=== PATIENT | male | born 2005 | race Caucasian/White ===

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

== ENCOUNTER 2025-01-22 07:33 | Emergency (ER) | payer SELFPAY ==
[2025-01-22 07:33] VITALS: BP 129/85; PULSE 104; RESP 24; TEMP 36.5; O2SAT 100; BMI 23.0
--- NOTE | 2025-01-22 07:37 | ECG_ITS ---
APPROVED REPORT Exam: Resting ECG HR:82 bpm ECG Measurements Heart Rate 82 AXES OH 136 P 67 QRSd 105 QRS 80 QT 345 T 74 QTc 383 Conclusion SINUS RHYTHM WITH OCCASIONAL SUPRAVENTRICULAR PREMATURE COMPLEXES INCOMPLETE RIGHT BUNDLE BRANCH BLOCK [90+ ms QRS DURATION, TERMINAL R IN V1/V2, 40+ ms S IN I/aVL/V4/V5/V6] BORDERLINE ECG UNCONFIRMED REPORT Electronically signed by : LORIE RENEE, 01/24/2025 02:53:10
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
--- OUTSIDE RECORDS SUMMARY | 2025-01-22 07:40 | XMS_ITS | Clinical Summary ---
Author Organization [facility] Address [address] [place] [address] Care Team Providers Care Optician Apprentice Dispensing Name Role Phone Provider, No Known Primary Care Provider [phone] Allergies Active Allergy Reactions Criticality Noted Date [...] 04/21/2022, 017 Insurance [employer] MEDICAID [place] Care Teams Optician Apprentice Dispensing Relationship Specialty Start Date End Date Provider, No Known [facility] [place] [address] PCP - General 02/03/24
--- OUTSIDE RECORDS SUMMARY | 2025-01-22 07:40 | XMS_ITS | Clinical Summary ---
Author Organization [facility] Address [address], [address] [place] [address] Care Team Providers Care Negative Turner Name Role Phone Unavailable Primary Care Provider [...]
--- OUTSIDE RECORDS SUMMARY | 2025-01-22 07:40 | XMS_ITS | Clinical Summary ---
Author Organization [facility] Address [address] [place] [address] Care Team Providers Care Certified Ophthalmic Medical Technician Name Role Phone Eduar Prasad MD Primary Care Provider [phone] Allergies Active Allergy Reactions Criticality Noted Date [...] 5 Active cholecalciferol (VITAMIN D3) 1.25 MG (20702 UT) capsule TAKE 1 CAPSULE BY MOUTH [...] [employer] Care Teams Certified Ophthalmic Medical Technician Relationship Specialty Start Date End Date Eduar Prasad MD [address] [facility] [address] [place] [address] PCP - General Internal Medicine 02/24/22
--- OUTSIDE RECORDS SUMMARY | 2025-01-22 07:40 | XMS_ITS | Clinical Summary ---
Author Organization [facility] Address [address] [place] [address] Care Team Providers Care Clamper Name Role Phone Pcp, No Primary Care [...] 2024 12/07/2009, 11/17/2006, 06/09/2006, Additional history exists [id number] Vaccine (1 - season) 2024 UKY-Influenza Vaccine [...] this topic Insurance MEDICAID [place] [facility]ID [facility] Advance Directives * Full Code (Latest Code [...] Surrogate: Parent(s) of the patient Care Teams Clamper Relationship Specialty Start Date End Date Mayte Swift [address] [place] [address] PCP - General Family Medicine 05/13/21
--- NOTE | 2025-01-22 07:44 | ED_ITS ---
Discharge Plan Disposition Patient Disposition: Home, Self-Care Condition: Good Prescriptions Prescriptions: No Action triamcinolone acetonide 0.025 % ointment 1 applic topical BID PRN (Reason: rash) Qty: 30 0RF Rx Instructions: apply to rash as directed, do not use on your face prednisone 5 mg tablets,dose pack See Rx Instructions PO PER PKG DIR Qty: 21 0RF Rx Instructions: PO PER PKG DIR famotidine [Pepcid] 20 mg tablet 20 mg PO DAILY Qty: 30 0RF Referrals Follow up/Referrals: Lonnie Prasad MD [Primary Care Provider, Internal Medicine] - See instructions Activity Restrictions/Add. Instructions Additional Instructions/Restrictions: There is no evidence of any emergent medical condition identified today. Your symptoms are all consistent with a methamphetamine overdose. As the drug continues to metabolize and your body your symptoms should continue to improve. Return to the emergency point with any other concerns. Clinical Impressions Clinical Impression: Methamphetamine abuse, Panic attack, Atypical chest pain, Hyperbilirubinemia Print Language Print Language: Tanzanian Discharge ED Provider: Trey Nicole General Adult HPI General Chief complaint: Chest Pain Stated complaint: CP Time Seen by Provider: 01/22/25 07:36 History of Present Illness HPI narrative: Patient is a 19-year-old male presenting today with a panic attack and chest discomfort after using meth all night long last night. First time that he had used meth. States that he thought he would be okay because he had been on Ritalin in the past. Typically uses downers and pain pills. He states he had been off of this for several months though. Related Data Previous Rx's ?Medication ?Instructions ?Recorded prednisone 5 mg tablets in a dose See Rx Instructions PO PER PKG DIR 10/13/24 pack #21 tabs triamcinolone acetonide 0.025 % 1 applic topical BID P RN rash #30 10/13/24 topical ointment grams famotidine 20 mg tablet (Pepcid) 20 mg PO DAILY #30 ta bs 12/30/24 Allergies Allergy/AdvReac Type Severity Reaction Status Date / Time haloperidol (From Haldol) Allergy Intermediate Palpitation Verified 10/13/24 12:23 [facility] Disclaimer: The information contained in this section may have been updated after the patient was seen, as this information can be updated by other users. Medical History Depression Anxiety Surgical History History of tympanostomy tube placement History of surgery on arm Family History Family/Other No significant family history Social History Smoking Status: Current every day smoker alcohol intake: never current occupational status: student Travel in the last 8 weeks?: None Have you lived/traveled outside US in past 30 days?: No Contact w/someone who lives/traveled outside US past 30 days?: No Exposure to someone with infectious disease in past 14 days?: No Do you have a fever (greater than 100.4 F or 38 C)?: No Have you tested positive for COVID-19?: No Exposed to someone with COVID-19 in past 14 days?: No Do you have a sore throat?: No Do you have a cough?: No Do you have any weakness?: No Do you have any diarrhea?: No Are you experiencing any unusual bleeding?: No Do you have any muscle aches/pain?: No Do you have any abdominal pain?: No Are you experiencing loss of taste or smell?: No Other Medical History Have you received the Pneumonia Vaccine: No ROS Obtained: Yes All systems reviewed & no additional complaints except as documented Physical Exam General General appearance: anxious (Hyperventilating) Respiratory Respiratory exam: Present normal lung sounds bilaterally; Absent respiratory distress Cardiovascular Cardiovascular exam: Present tachycardia Neurological Exam Neurological exam: Present alert, oriented X3 and other (Nonfocal) Medical Decision Making Medical Records Screening: Per USPSTF and CDC recommendations, given the prevalence of disease in our region, it is our hospital?s policy to screen for HIV and viral Hepatitis for all patients aged 18 and over and those with ongoing risk factors. Deshawn Inquiry Pt receiving controlled substance: No Vital Signs: 01/22/25 07:33 01/22/25 07:33 01/22/25 08:00 Temperature 97.7 F 97.7 F Temperature Source Oral Pulse Rate 104 H 116 H Pulse Rate [Right] 104 H Respiratory Rate 24 24 Blood Pressure 129/85 124/81 Blood Pressure [Right Arm] 129/85 Blood Pressure Mean [Right Arm] 99 02 Sat by Pulse Oximetry 100 100 99 Oxygen Delivery Method 01/22/25 08:00 01/22/25 08:01 01/22/25 08:31 Temperature Temperature Source Pulse Rate 110 H 116 H 97 H Pulse Rate [Right] Respiratory Rate 29 H 24 Blood Pressure 124/81 127/76 Blood Pressure [Right Arm] Blood Pressure Mean [Right Arm] 02 Sat by Pulse Oximetry 99 99 Oxygen Delivery Method Room Air Room Air 01/22/25 09:16 Temperature 97.7 F Temperature Source Pulse Rate 65 Pulse Rate [Right] Respiratory Rate 20 Blood Pressure 137/80 Blood Pressure [Right Arm] Blood Pressure Mean [Right Arm] 02 Sat by Pulse Oximetry Oxygen Delivery Method Lab Data Lab results reviewed: Yes I reviewed the patient's lab results. Lab Results 01/22/25 07:19: WBC 14.3 H, RBC 5.42, Hgb 17.2, Hct 47.5, MCV 87.6, MCH 31.7 H, MCHC 36.2 H, RDW 12.5, Plt Count 378, MPV 9.8, Neut % (Auto) 73.6, Lymph % (Auto) 18.0, [place] % (Auto) 7.3, Eos % (Auto) 0.6, Baso % (Auto) 0.3, Neut # (Auto) 10.6 H, Lymph # (Auto) 2.6, [place] # (Auto) 1.1 H, Eos # (Auto) 0.1, Baso # (Auto) 0.1, Sodium 140, Potassium 3.8, Chloride 105, Carbon Dioxide 17 L, Anion Gap 21.8 H, BUN 15, Creatinine 1.30 H, Estimated GFR 71, Est GFR ( Amer) 86, Glucose 99, Calcium 9.6, Total Bilirubin 3.7 H, AST 29, ALT 22, Alkaline Phosphatase 94, Total Creatine Kinase 127, Troponin I < 0.01, Total Protein 9.2 H, Albumin 5.2 H, Globulin 4.0 H, Albumin/Globulin Ratio 1.3 01/22/25 07:19 01/22/25 07:19 Orders (Tests/Meds): ED MEDICATIONS Discontinued Medications Generic Name Dose Route Start Last Admin Trade Name Freq PRN Reason Stop Dose Admin Diazepam 2 mg 01/22/25 07:41 01/22/25 08:08 Diazepam 10mg/2ml Syringe IV 01/22/25 07:42 2 mg ONCE ONE Administration Lactated Ringer's 1,000 mls @ 999 mls/hr 01/22/25 07:45 01/22/25 08:10 Lactated Ringer's 1000 Ml Bag IV 01/22/25 08:45 999 mls/hr .Q1H1M BOB Administration ORDERS Category Date Time Status CBC w/Auto Diff [Complete Blood Count Auto Diff] Stat Lab 01/22/25 07:19 Completed CK [Creatine Kinase] Stat Lab 01/22/25 07:19 Completed CMP [Comprehensive Metabolic Panel] Stat Lab 01/22/25 07:19 Completed Trop I [Troponin I] Stat Lab 01/22/25 07:19 Completed Troponin I Q3H Lab 01/22/25 10:45 Ordered Troponin I Q3H Lab 01/22/25 13:45 Ordered Medical Decision Narrative: 19-year-old with above history and physical. EKG was performed which I personally interpreted which shows a ventricular rate of 82 no acute ischemic changes noted poor baseline due to patient's tremor normal axis unremarkable EKG. Patient is having a panic attack and was very anxious and tachycardic and tremulous this is all consistent with a methamphetamine overdose. States that he was trying to keep up with the person that he was using with and this was the first time that he ingested. I had an extensive discussion with him that these medications/drugs are not FDA approved therefore he does not know exactly what he put into his body. He is awake alert oriented no medical reason for me to try to identify the exact metabolite that he ingested but this seems to be consistent with meth. Will get a CK and a single troponin EKG is nonischemic given IV fluids and IV Valium and keep him for observation. Reassessment 919 patient much improved heart rate down in the 60s and 70s he feels better still somewhat symptomatic. Mother is now at the bedside she is aware of what is going on. Patient has a very mildly elevated creatinine and bilirubin at 3.7 that has been trending up. He has had a hepatitis C test in the past which was nonreactive. I did advise that he follow-up with his primary care doctor to look into this further and to stop using drugs. No definitive cause from emergency standpoint to cause hyperbilirubinemia. Patient discharged in stable and improved condition. Additionally no evidence of any acute myocardial injury or other associated cardiopulmonary emergency with his overdose today. No further testing or treatment necessary from that standpoint. Critical Care Critical Care Time Critical Care Time: Yes Attestation: On 01/22/25, the high probability of a clinically significant, sudden or life threatening deterioration of the following system(s) required my full and direct attention, intervention and personal management. The time I documented below is in addition to time spent performing reported procedures but includes the following listed in this critical care notation. Total Time Total Critical Care Time: 35
[2025-01-22 07:50] LABS: Hematocrit 47.5 % (42.0-52.0); Hemoglobin 17.2 g/dL (14.1-18.0); Immature Granulocytes % 0.2 %; Mean Corpuscular HGB Conc 36.2 g/dL (31.8-35.4); Mean Corpuscular Hemoglobin 31.7 pg (27.0-31.2); Mean Corpuscular Volume 87.6 fl (80-94); Nucleated Red Blood Cells % 0 %; Platelet Count 378 K/mm3 (142-424); Red Blood Count 5.42 M/mm3 (4.60-6.20); Red Cell Distribution Width-SD 40.1 fL; White Blood Count 14.3 K/mm3 (4.5-13.0)
[2025-01-22 07:51] LABS: Albumin Level 5.2 g/dl (3.5-5.0); Chloride 105 mmol/L (98-107); Potassium 3.8 mmoL/L (3.5-5.1); Sodium 140 mmol/L (136-145)
[2025-01-22 07:53] LABS: Blood Urea Nitrogen 15 mg/dl (9-20)
[2025-01-22 07:54] LABS: Alanine Aminotransferase 22 U/L (12-78); Albumin/Globulin Ratio 1.3 (1.1-1.8); Alkaline Phosphatase 94 U/L (38-126); Anion Gap 21.8 mEq/L (5-15); Aspartate Amino Transferase 29 U/L (17-59); Bilirubin,Total 3.7 mg/dl (0.2-1.3); Carbon Dioxide 17 mmol/L (22.0-30.0); Creatine Kinase 127 U/L (55-170); Creatinine,Serum 1.30 mg/dl (0.66-1.25); Estimated Glomerular Filt Rate 71 ml/min (>60); GFR (African American) 86 ML/MIN (>60); Globulin 4.0 g/dL (1.3-3.2); Total Protein,Serum 9.2 g/dl (6.3-8.2)
[2025-01-22 07:55] LABS: Calcium 9.6 mg/dl (8.4-10.2); Glucose 99 mg/dl (74-100)
[2025-01-22 08:00] VITALS: BP 124/81; PULSE 110; PULSE 116; RESP 29; O2SAT 99
[2025-01-22 08:01] VITALS: PULSE 116
[2025-01-22 08:08] LABS: Troponin I < 0.01 ng/ml (0.00-0.034)
[2025-01-22] MEDS: diazePAM 10MG/2ML SYRINGE 2 MG IV (08:08)
[2025-01-22] MEDS: LACTATED RINGERS 1000ML 1,000 ML 999 ML IV (08:10)
[2025-01-22 08:31] VITALS: BP 127/76; PULSE 97; RESP 24; O2SAT 99
[2025-01-22 09:16] VITALS: BP 137/80; PULSE 65; RESP 20; TEMP 36.5; O2SAT 100
== END 2025-01-22 09:31 | disposition home or self-care (01) ==
PROVIDERS: Emergency Provider Student in an Organized Health Care Education/Training Program; PCP Internal Medicine Adolescent Medicine
DX: R07.89 Other chest pain (principal); F15.929 Other stimulant use, unspecified with intoxication, unspecified; R00.0 Tachycardia, unspecified; R06.4 Hyperventilation; F41.0 Panic disorder [episodic paroxysmal anxiety]; E80.6 Other disorders of bilirubin metabolism; F17.210 Nicotine dependence, cigarettes, uncomplicated
CPT/HCPCS: 80053; 82550; 84484; 85025; 93005; 96361; 96374; 99285; J3360; J7120

== ENCOUNTER 2025-01-30 18:18 | Emergency (ER) | payer SELFPAY ==
[2025-01-30 18:25] VITALS: BP 125/59; PULSE 89; RESP 18; TEMP 37.2; O2SAT 100; BMI 22.3
--- OUTSIDE RECORDS SUMMARY | 2025-01-30 18:45 | XMS_ITS | Clinical Summary ---
Author Organization Healthcare Address [address] [place] [address] Care Team Providers Care Maintenance Dispatcher Name Role Phone Pcp, No Primary Care [...] 2024 12/07/2009, 11/17/2006, 06/09/2006, Additional history exists [id number] Vaccine (1 - season) 2024 UKY-Influenza Vaccine [...] this topic Insurance MEDICAID [place] [facility] Advance Directives * Full Code (Latest Code [...] Surrogate: Parent(s) of the patient Care Teams Maintenance Dispatcher Relationship Specialty Start Date End Date Mayte Swift [address] [place] [address] PCP - General Family Medicine 05/13/21
--- OUTSIDE RECORDS SUMMARY | 2025-01-30 18:45 | XMS_ITS | Clinical Summary ---
[facility] Organization [facility] Address [address] [place] [address] Care Team Providers Care Clerk Of Superior Court Name Role Phone Provider, No Known Primary Care Provider Allergies Active Allergy Reactions Criticality Noted Date [...] 04/21/2022, 017 Insurance [employer] [place]ICAID [place] Care Teams Clerk Of Superior Court Relationship Specialty Start Date End Date Provider, No Known [facility] [place] [address] PCP - General 02/03/24
--- OUTSIDE RECORDS SUMMARY | 2025-01-30 18:45 | XMS_ITS | Clinical Summary ---
Author Organization [facility] Address [address] [place] [address] Care Team Providers Care Jig Grinder Set Up Operator Name Role Phone Eduar Prasad MD Primary Care Provider [phone] Allergies Active Allergy Reactions Criticality Noted Date [...] 5 Active cholecalciferol (VITAMIN D3) 1.25 MG (01800 UT) capsule TAKE 1 CAPSULE BY MOUTH [...] [employer] Care Teams Jig Grinder Set Up Operator Relationship Specialty Start Date End Date Eduar Prasad MD [address] [facility] [address] [place] [address] PCP - General Internal Medicine 02/24/22
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
--- OUTSIDE RECORDS SUMMARY | 2025-01-30 18:45 | XMS_ITS | Clinical Summary ---
Author Organization [facility] Address [address], [address] [place] [address] Care Team Providers Care Wrapper Layer And Examiner Soft Work Name Role Phone Unavailable Primary Care Provider [...]
--- NOTE | 2025-01-30 18:56 | ED_ITS ---
<Statement entered by Trey Nicole MD - 01/30/25 22:37> I was consulted by the SAI, and we discussed the complexity of the problems being addressed. I approved the treatment and management plan for this patient's care in the emergency department, thus performing a substantive portion of the medical decision making. Trey Nicole MD, VARUN, FACEP Discharge Plan Disposition Patient Disposition: Home, Self-Care Condition: Good Prescriptions Prescriptions: New amoxicillin-pot clavulanate 875-125 mg tablet 1 tab PO BID Qty: 14 0RF No Action triamcinolone acetonide 0.025 % ointment 1 applic topical BID PRN (Reason: rash) Qty: 30 0RF Rx Instructions: apply to rash as directed, do not use on your face prednisone 5 mg tablets,dose pack See Rx Instructions PO PER PKG DIR Qty: 21 0RF Rx Instructions: PO PER PKG DIR famotidine [Pepcid] 20 mg tablet 20 mg PO DAILY Qty: 30 0RF Referrals Follow up/Referrals: Lonnie Prasad MD [Primary Care Provider, Internal Medicine] - See instructions Activity Restrictions/Add. Instructions Additional Instructions/Restrictions: You were evaluated on an emergency basis. It is very important that you follow- up with your primary care provider and any specialist who we discussed within the next 2 days in order to better assess your health more comprehensively. For example, incidental findings on imaging or laboratory results that were performed today may be discovered, which do not require immediate medical care, but may impact your health in the future. If your symptoms worsen or persist, please return to the emergency department immediately for reassessment. Take all medications as prescribed. In queue for allowing me to participate in your health care, and I hope you feel better soon. Clinical Impressions Clinical Impression: Gingivitis, Dental caries Instructions Patient Instructions: DI for Dental Pain Print Language Print Language: Gabonese Discharge ED Provider: Trey Nicole General Adult HPI General Chief complaint: PAIN Stated complaint: tooth pain Time Seen by Provider: 01/30/25 18:56 Mode of Arrival: Ambulatory Source of Information: Patient Description of Symptoms (Recalled from ER Triage Doc. by RN): PT c/o left sided tooth pain on the top and bottom of his mouth starting earlier today. History of Present Illness HPI narrative: 19-year-old male presents emergency department complaints of dental pain. Patient states he has been trying to work with his dentist to get his cavities taken care of however he is told that he needs a referral to get a root canal. Related Data Previous Rx's ?Medication ?Instructions ?Recorded prednisone 5 mg tablets in a dose See Rx Instructions PO PER PKG DIR 10/13/24 pack #21 tabs triamcinolone acetonide 0.025 % 1 applic topical BID P RN rash #30 10/13/24 topical ointment grams famotidine 20 mg tablet (Pepcid) 20 mg PO DAILY #30 ta bs 12/30/24 amoxicillin 875 mg-potassium 1 tab PO BID #14 tabs clavulanate 125 mg tablet Allergies Allergy/AdvReac Type Severity Reaction Status Date / Time haloperidol (From Haldol) Allergy Intermediate Palpitation Verified 10/13/24 12:[address] [facility] Disclaimer: The information contained in this section may have been updated after the patient was seen, as this information can be updated by other users. Medical History Depression Anxiety Surgical History History of tympanostomy tube placement History of surgery on arm Family History Family/Other No significant family history Social History Smoking Status: Current every day smoker alcohol intake: never current occupational status: student Travel in the last 8 weeks?: None Have you lived/traveled outside US in past 30 days?: No Contact w/someone who lives/traveled outside US past 30 days?: No Exposure to someone with infectious disease in past 14 days?: No Do you have a fever (greater than 100.4 F or 38 C)?: No Have you tested positive for COVID-19?: No Exposed to someone with COVID-19 in past 14 days?: No Do you have a sore throat?: No Do you have a cough?: No Do you have any weakness?: No Do you have any diarrhea?: No Are you experiencing any unusual bleeding?: No Do you have any muscle aches/pain?: No Do you have any abdominal pain?: No Are you experiencing loss of taste or smell?: No Other Medical History Have you received the Pneumonia Vaccine: No ROS Obtained: Yes other ENT Ears, Nose, Mouth, and Throat: Reports dental pain Physical Exam Narrative Physical exam: General: Awake, aware, in no acute distress CV: RRR, no murmurs, rubs, or gallops Pulm: CTA bilaterally with no rhonchi, rales, wheezes ABD: Nontender, no swelling, guarding, or rebound tenderness Psych, appropriate mood and affect ENT: Patient with numerous dental cavities. Patient also with severe plaque buildup as well as gingivitis. No obvious abscess noted. General General appearance: alert Respiratory Respiratory exam: Present normal lung sounds bilaterally Cardiovascular Cardiovascular exam: Present regular rate Neurological Exam Neurological exam: Present alert Medical Decision Making Medical Records Screening: Per USPSTF and CDC recommendations, given the prevalence of disease in our region, it is our hospital?s policy to screen for HIV and viral Hepatitis for all patients aged 18 and over and those with ongoing risk factors. Deshawn Inquiry Pt receiving controlled substance: No Vital Signs: 01/30/25 18:25 Temperature 98.9 F Temperature Source Temporal Artery Scan Pulse Rate [Right] 89 Respiratory Rate 18 Blood Pressure [Right Arm] 125/59 L Blood Pressure Mean [Right Arm] 81 Blood Pressure Source [Right Arm] Automatic Cuff Blood Pressure Position [Right Arm] Sitting 02 Sat by Pulse Oximetry 100 Oxygen Delivery Method Room Air Medical Decision Narrative: Initial impression of presenting illness: 19-year-old male presents emergency department complaints of dental pain. He states that he has been trying to work with a dentist to get his dental caries taking care of but states that he was told he needed a referral for root canal. Differential diagnosis includes but is not limited to: Gingivitis, abscess, dental carry Patient arrives hemodynamically stable, afebrile, without respiratory distress with vital signs interpreted by myself. Initial physical exam reveals diffuse gingivitis with severe plaque buildup. Patient has numerous dental caries present. No evidence of abscess. Initial diagnostic plan: Dental balls for pain Disposition: Advised patient that he can use the dental balls for pain control as well as Tylenol and ibuprofen. Informed patient that we will give him prescription for antibiotics to help with any infection. Recommended that he contact [facility] for treatment of his dental pain if he is unable to coordinate care with his primary dentist. Instructed him to return to the emergency department any new or worsening symptoms. Patient is agreeable to plan of care. Patient made aware of findings and had a detailed discussion with symptomatic care and return precautions, patient voiced understanding. Critical Care Critical Care Time Critical Care Time: No
[2025-01-30 19:13] VITALS: BP 131/68; PULSE 71; RESP 16; TEMP 37.2; O2SAT 100
[2025-01-30] MEDS: LIDOCAINE 2% VISCOUS SOL 15ML UDC 15 ML PO (19:14)
== END 2025-01-30 19:14 | disposition home or self-care (01) ==
PROVIDERS: Emergency Provider Student in an Organized Health Care Education/Training Program; PCP Internal Medicine Adolescent Medicine
DX: K08.89 Other specified disorders of teeth and supporting structures (principal); K05.10 Chronic gingivitis, plaque induced; F17.210 Nicotine dependence, cigarettes, uncomplicated
CPT/HCPCS: 99282

== ENCOUNTER 2025-02-02 10:20 | Emergency (ER) | payer SELFPAY ==
[2025-02-02 10:25] VITALS: BP 119/56; PULSE 78; RESP 16; TEMP 36.4; O2SAT 97; BMI 24.0
--- NOTE | 2025-02-02 10:38 | XR_ITS ---
FINAL REPORT CLINICAL HISTORY: fall in mud, pain near pinky knuckle COMPARISON: None FINDINGS: LEFT HAND Three views demonstrate no acute fracture or dislocation. The visualized joint spaces are normally aligned. The soft tissues are unremarkable. IMPRESSION: No acute process. Reviewed, Interpreted and Dictated by Rick Gorman MD Transcribed by Nilam Chang Authenticated and [facility]
--- OUTSIDE RECORDS SUMMARY | 2025-02-02 10:50 | XMS_ITS | Clinical Summary ---
Author Organization Healthcare Address [address] [place] [address] Care Team Providers Care Noc Engineer Name Role Phone Pcp, No Primary Care [...] 2024 12/07/2009, 11/17/2006, 06/09/2006, Additional history exists [id number] Vaccine (1 - season) 2024 UKY-Influenza Vaccine [...] topic Insurance MEDICAID [place] [facility] Advance Directives * Full Code (Latest [...] Surrogate: Parent(s) of the patient Care Teams Noc Engineer Relationship Specialty Start Date End Date Mayte Swift [address] [place] [address] PCP - General Family Medicine 05/13/21
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
--- OUTSIDE RECORDS SUMMARY | 2025-02-02 10:50 | XMS_ITS | Clinical Summary ---
[facility] Organization [facility] Address [address] [place] [address] Care Team Providers Care Law Professor Name Role Phone Provider, No Known Primary Care Provider [phone] Allergies Active Allergy Reactions Criticality Noted Date [...] 04/21/2022, 017 Insurance [employer] [place] Care Teams Law Professor Relationship Specialty Start Date End Date Provider, No Known [facility] [place] [address] PCP - General 02/03/24
--- OUTSIDE RECORDS SUMMARY | 2025-02-02 10:51 | XMS_ITS | Clinical Summary ---
Author Organization [facility] Address [address], [address] [place] [address] Care Team Providers Care Chief Compressor Station Engineer Name Role Phone Unavailable Primary Care Provider [...]
--- OUTSIDE RECORDS SUMMARY | 2025-02-02 10:51 | XMS_ITS | Clinical Summary ---
Author Organization [facility] Address [address] [place] [address] Care Team Providers Care Activities Aide Name Role Phone Eduar Prasad MD Primary Care Provider [phone] Allergies Active Allergy Reactions Criticality Noted Date [...] 5 Active cholecalciferol (VITAMIN D3) 1.25 MG (13162 UT) capsule TAKE 1 CAPSULE BY MOUTH [...] [employer] Care Teams Activities Aide Relationship Specialty Start Date End Date Eduar Prasad MD [address] [facility] [address] [place] [address] PCP - General Internal Medicine 02/24/22
--- NOTE | 2025-02-02 10:56 | ED_ITS ---
<Statement entered by Damien Chavarria MD - 02/02/25 13:59> I was consulted by the [facility], and we discussed the complexity of the problems being addressed. I approve the treatment and management plan for this patient's care in the emergency department, thus performing a substantive portion of the medical decision making. Damien Chavarria MD Discharge Plan Disposition Patient Disposition: Home, Self-Care Prescriptions Prescriptions: No Action triamcinolone acetonide 0.025 % ointment 1 applic topical BID PRN (Reason: rash) Qty: 30 0RF Rx Instructions: apply to rash as directed, do not use on your face prednisone 5 mg tablets,dose pack See Rx Instructions PO PER PKG DIR Qty: 21 0RF Rx Instructions: PO PER PKG DIR famotidine [Pepcid] 20 mg tablet 20 mg PO DAILY Qty: 30 0RF amoxicillin-pot clavulanate 875-125 mg tablet 1 tab PO BID Qty: 14 0RF Referrals Follow up/Referrals: Lonnie Prasad MD [Primary Care Provider, Internal Medicine] - See instructions Activity Restrictions/Add. Instructions Additional Instructions/Restrictions: Your x-ray was normal on your left hand here in the ED. Please use ice, ibuprofen, James wrap and rest. If you start to have worsening pain rather than improved pain please follow-up with your primary care provider for additional imaging and treatment. Clinical Impressions Clinical Impression: Hand sprain Instructions Patient Instructions: DI for Hand Injury Print Language Print Language: Portuguese Discharge ED Provider: Damien Chavarria General Adult HPI General Chief complaint: PAIN Stated complaint: AO 02/01/25, fell, inj. left hand Time Seen by Provider: 02/02/25 10:48 Mode of Arrival: Ambulatory Source of Information: Patient Description of Symptoms (Recalled from ER Triage Doc. by RN): pt presents to ED with c/o left hand pain. pt reports that he slipped and fell in mud last night and has been having pain since then History of Present Illness HPI narrative: 19-year-old male presents to the ED today for complaint of falling last night in the mud at his friend's house. He had things in his hand and fell on his left hand now he has pain along the pinky side of his hand. He has broken that part of his hand for the past and now has pain there. He is unable to move his pinky well. All his other fingers move well. Related Data Previous Rx's ?Medication ?Instructions ?Recorded prednisone 5 mg tablets in a dose See Rx Instructions PO PER PKG DIR 10/13/24 pack #21 tabs triamcinolone acetonide 0.025 % 1 applic topical BID P RN rash #30 10/13/24 topical ointment grams famotidine 20 mg tablet (Pepcid) 20 mg PO DAILY #30 ta bs 12/30/24 amoxicillin 875 mg-potassium 1 tab PO BID #14 tabs clavulanate 125 mg tablet Allergies Allergy/AdvReac Type Severity Reaction Status Date / Time haloperidol (From Haldol) Allergy Intermediate Palpitation Verified 10/13/24 12:23 [facility] Disclaimer: The information contained in this section may have been updated after the patient was seen, as this information can be updated by other users. Medical History Depression Anxiety Surgical History History of tympanostomy tube placement History of surgery on arm Family History Family/Other No significant family history Social History Smoking Status: Current every day smoker alcohol intake: never current occupational status: student Travel in the last 8 weeks?: None Have you lived/traveled outside [place] in past 30 days?: No Contact w/someone who lives/traveled outside US past 30 days?: No Exposure to someone with infectious disease in past 14 days?: No Do you have a fever (greater than 100.4 F or 38 C)?: No Have you tested positive for COVID-19?: No Exposed to someone with COVID-19 in past 14 days?: No Do you have a sore throat?: No Do you have a cough?: No Do you have any weakness?: No Do you have any diarrhea?: No Are you experiencing any unusual bleeding?: No Do you have any muscle aches/pain?: No Do you have any abdominal pain?: No Are you experiencing loss of taste or smell?: No Other Medical History Have you received the Pneumonia Vaccine: No ROS Obtained: Yes Systems reviewed as appropriate & no additional complaints except as documented Constitutional Constitutional: Reports as per HPI Physical Exam General General appearance: alert and in no apparent distress Head Head exam: normocephalic Eye Eye exam: Present PERRL and EOMI ENT ENT exam: Present mucous membranes moist Neck Neck exam: Present full ROM and trachea midline Respiratory Respiratory exam: Present normal lung sounds bilaterally Cardiovascular Cardiovascular exam: Present normal rhythm, normal heart sounds, +S1 and +S2 Abdominal Exam Abdominal exam: Present soft and normal bowel sounds Extremities Exam Extremities exam: Present tenderness (Ulnar side of hand) and normal capillary refill Neurological Exam Neurological exam: Present alert and oriented X3 Skin Skin exam: Present warm and dry Medical Decision Making Medical Records Screening: Per USPSTF and CDC recommendations, given the prevalence of disease in our region, it is our hospital?s policy to screen for HIV and viral Hepatitis for all patients aged 18 and over and those with ongoing risk factors. Deshawn Inquiry Pt receiving controlled substance: No Deshawn was queried for this patient: No Vital Signs: 02/02/25 10:25 02/02/25 11:23 Temperature 97.6 F 98.2 F Temperature Source Oral Oral Pulse Rate 78 Pulse Rate [Left Radial] 78 Respiratory Rate 16 16 Blood Pressure 120/60 Blood Pressure [Right Arm] 119/56 L Blood Pressure Mean [Right Arm] 77 Blood Pressure Source Automatic Cuff Blood Pressure Position Sitting 02 Sat by Pulse Oximetry 97 Oxygen Delivery Method Room Air Orders (Tests/Meds): ORDERS Category Date Time Status Hand XR left minimum 3 views [XR hand LT min 3V] Stat Exams 02/02/25 10:38 Completed Medical Decision Narrative: patient is a 19-year-old male presenting to the emergency department for evaluation of left hand pain. Patient is hemodynamically stable and nontoxic- appearing upon arrival, afebrile. Differential diagnosis includes fracture versus sprain. Workup will be conducted with specific imaging. Patient's x-ray showed no acute fracture. Patient will be placed with an James wrap and then he will do rest, ice, compression and elevation. He will use Tylenol or ibuprofen whichever helps best. Patient is safe for discharge home. He was told to follow-up with Dr. Prasad if pain worsens or does not improve. Critical Care Critical Care Time Critical Care Time: No
[2025-02-02 11:23] VITALS: BP 120/60; PULSE 78; RESP 16; TEMP 36.8; O2SAT 98
== END 2025-02-02 11:34 | disposition home or self-care (01) ==
PROVIDERS: Emergency Provider Student in an Organized Health Care Education/Training Program; PCP Internal Medicine Adolescent Medicine
DX: S63.92XA Sprain of unspecified part of left wrist and hand, initial encounter (principal); M79.642 Pain in left hand; W01.10XA Fall on same level from slipping, tripping and stumbling with subsequent striking against unspecified object, initial encounter
CPT/HCPCS: 73130; 99283